=== PATIENT | male | born 1955 | race Caucasian/White ===

== ENCOUNTER 2018-06-21 07:01 | Outpatient (CLI) | payer OTHER, SELFPAY ==
[2018-06-21 08:11] LABS: Cholesterol 206 mg/dL (50-200); Glucose 95 mg/dL (70-100); HDL Cholesterol 63 mg/dL (40-60); LDL CHOLESTEROL 125 mg/dL (<100); Triglyceride 80 mg/dL (30-150)
[2018-06-24 10:14] LABS: Lyme Ab w Rflx to Lyme Confirm Negative
== END 2018-06-21 07:21 ==
LOC: LBN 07:06 → LBO 10:49
PROVIDERS: PCP Family Medicine; Visit Provider Family Medicine
DX: M25.50 Pain in unspecified joint (principal); Z13.220 Encounter for screening for lipoid disorders
CPT/HCPCS: 36415; 80061; 82947; 83721; 86618

== ENCOUNTER 2018-10-14 09:02 | Day surgery (SDC) | payer OTHER, SELFPAY ==
--- NOTE | 2018-10-14 06:53 | W.COLOREPORT ---
Date of service: 10/14/18 Time of Service: 10:52 Colonoscopy Report Date of procedure: 10/14/18 Pre-op diagnosis general: Colon Cancer screening Post-op diagnosis procedure note: same Procedure: Colonoscopy Surgeon: Ijeoma Murray Anesthesia proc note operative: other (General/ ASA 2/ Delores Mclaughlin, MARLO) Estimated blood loss (mL): 0 Pathology: none sent Complications: None Disposition: same day Indications: Mr. Garcia is a pleasant 63 year old male seen in the office for a screening colonoscopy. His last colonoscopy was in 2007 and was normal. He has no family history of colon cancer. Risks, benefits and complications have been reviewed. Complications include but are not limited to bleeding, pain, perforation, missed small lesion/polyp, sore throat, aspiration and adverse reaction to the medications. Questions were entertained and answered to their satisfaction and they wished to proceed. No guarantees were given or implied. Prep: Miralax/Dulcolax Procedure Start Time: 10:52 Procedure End Time: 11:13 Retraction Time: 13 minutes Findings: Normal colon Procedure Description: After informed consent was obtained the patient was taken to the procedure room and placed in a left decubitous position. Monitors were applied and a time out was done. The patients name, date of , procedure, allergies to medications and metal in their body was reviewed. The patient was then sedated. Once sedated and comfortable a rectal exam was done. External exam was normal. Internal exam revealed a normal sphincter tone and no palpable masses. The prostate felt smooth. The scope was then introduced and retro-flexed. No internal hemorrhoids were identified. No rectal polyps or masses were noted. The scope was then advanced to the cecum without difficulty. The TI and appendiceal orifice were identified. The prep was good. The scope was then slowly retracted over 13 minutes back into the rectum. There were no polyps and no diverticula. The scope was removed and the patient was woken up and taken back to Same day surgery in stable condition. The patient tolerated the procedure well and there were no immediate complications. Follow up: The patient should follow up in 10 years unless they develop changes in bowel habits or other new gastrointestinal complaints.
--- NOTE | 2018-10-14 06:55 | W.PM.DSUDISC ---
Discharge Plan Disposition Patient Disposition: HOME Condition: Good Discharge Details Reason For Visit: Colonoscopy Attending Provider: Ijeoma Murray Primary Care Provider: Nancy Ni Home Meds and New Rx's Prescriptions: Continued multivitamin [Daily Vitamin] 1 EACH tablet 1 ea PO DAILY RF: 0 terbinafine HCl 250 mg Tablet 250 mg PO HS RF: 0 Discontinued bisacodyl [Dulcolax (bisacodyl)] 5 mg tablet,delayed release (DR/EC) 5 mg PO ONCE Qty: 4 RF: 0 polyethylene glycol 3350 17 gram/dose powder 238 g PO ONCE Qty: 238 RF: 0 Discharge Instructions Instructions: Colonoscopy (DC) Additional Instructions: Findings: Normal colon Follow up: 10 years unless you develop new symptoms Please call if you develop: fevers >101.5 Nausea or Vomiting Abdominal pain that is not transient DAY SURGERY UNIT POST COLONOSCOPY INSTRUCTIONS 1. Because there will be medication in your system for the next 24 hours, you may feel a little sleepy. Your coordination will be affected. Therefore: a. Do not drive or operate dangerous equipment for 24 hours. b. Do not drink alcohol beverages for 24 hours (not even beer). c. Plan to go home and rest for the day. 2. Generally there are no restrictions on your activity after a day or so has gone by, but you may feel a bit fatigued for a few days. 3 After you arrive home you may have a light meal and return to a normal diet as you can tolerate it without feeling sick to your stomach. 4. After surgery, you may feel pain or discomfort. This should be only transient, but if it persists please contact your doctor. 5. If there are any questions regarding the findings of your procedure, please feel free to contact your doctor. 6. If you are unable to contact your doctor with a problem, contact the hospital at [phone]. 7. Continue all your regular medications unless directed otherwise. I understand the above instructions and have no questions. Signature of Patient or Responsible Adult Escort Date/Time Name of Responsible Adult Escort Signature of Nurse Date/Time Activity:: Activity as Tolerated Diet:: As Tolerated Discharge Orders Discharge Orders: Discharge Order (Routine); Ordered 10/14/18 Ordered By: Ijeoma Murray DS: Diagnosis Discharge Diagnosis (1) S/P colonoscopy: Status: Acute
[2018-10-14 09:11] VITALS: BP 111/72; PULSE 54; RESP 16; TEMP 36.8; O2SAT 100
[2018-10-14] MEDS: Lactated Ringers 1,000 ML 80 ML IV (09:40)
[2018-10-14 11:50] VITALS: BP 113/77; PULSE 64; RESP 16; TEMP 36.2; O2SAT 99
== END 2018-10-14 12:04 | disposition home or self-care (01) ==
LOC: SUR 09:03
PROVIDERS: PCP Family Medicine; Visit Provider Surgery
PROC: 0DJD8ZZ Inspection of Lower Intestinal Tract, Via Natural or Artificial Opening Endoscopic (ICD-10-PCS; CPT 45378; principal; 2018-10-14 10:00)
DX: Z12.11 Encounter for screening for malignant neoplasm of colon (principal)
CPT/HCPCS: 45378

== ENCOUNTER 2019-07-05 01:22 | Outpatient (CLI) | payer OTHER, SELFPAY ==
[2019-07-05 11:19] LABS: Calculated LDL 157 mg/dL; Cholesterol 225 mg/dL (<200); Glucose 93 mg/dL (74-106); HDL Cholesterol 56 mg/dL (40-60); Triglyceride 64 mg/dL (<150)
== END 2019-07-05 01:42 ==
PROVIDERS: PCP Family Medicine; Visit Provider Family Medicine
DX: Z13.220 Encounter for screening for lipoid disorders (principal); Z13.1 Encounter for screening for diabetes mellitus
CPT/HCPCS: 36415; 80061; 82947

== ENCOUNTER 2020-12-24 02:19 | Outpatient (CLI) | payer OTHER, SELFPAY ==
[2020-12-24 09:02] LABS: ALT 36 U/L (16-63); AST 20 U/L (15-37); Albumin 3.7 g/dL (3.4-5.0); Alkaline Phosphatase 64 U/L (46-116); Anion Gap 7.3 mmol/L (3-11); BUN 14 mg/dL (7-18); Bilirubin, Total 0.5 mg/dL (0.2-1.0); CO2 28.7 mmol/L (21.0-32.0); CREATININE 0.9 mg/dL (0.70-1.30); Calcium 9.1 mg/dL (8.5-10.1); Calculated LDL 139 mg/dL (<100); Chloride 108 mmol/L (98-107); Cholesterol 210 mg/dL (<200); Glucose 103 mg/dL (74-106); HDL Cholesterol 58 mg/dL (40-60); Potassium 4.5 mmol/L (3.5-5.1); Sodium 144 mmol/L (136-145); Total Protein 6.7 g/dL (6.4-8.2); Triglyceride 65 mg/dL (<150)
== END 2020-12-24 02:20 | disposition home or self-care (01) ==
LOC: LBO 02:19
PROVIDERS: PCP Family Medicine; Visit Provider Family Medicine
DX: Z13.1 Encounter for screening for diabetes mellitus (principal); Z13.220 Encounter for screening for lipoid disorders
CPT/HCPCS: 36415; 80053; 80061

== ENCOUNTER 2022-10-16 03:57 | Outpatient (CLI) | payer OTHER, SELFPAY ==
[2022-10-16 08:17] LABS: HGB 13.5 g/dL (13.5-17.5); MCH 30.4 pg (27.0-33.0); MCHC 33.8 % (32.0-36.0); MCV 90 fL (80-95); MPV 8.8 fL (8.0-11.0); Platelet Count 340 10^3/uL (130-400); RBC 4.44 10^6/uL (4.36-5.78); RDW 13.5 % (11.8-14.1); RDW-SD 44.8 fL; WBC 4.99 10^3/uL (4.4-10.8)
[2022-10-16 08:59] LABS: ALT 24 U/L (16-63); AST 19 U/L (15-37); Albumin 3.8 g/dL (3.4-5.0); Alkaline Phosphatase 66 U/L (46-116); Anion Gap 4.8 mmol/L (3-11); BUN 16 mg/dL (7-18); Bilirubin, Total 0.7 mg/dL (0.2-1.0); CO2 30.2 mmol/L (21.0-32.0); CREATININE 0.9 mg/dL (0.70-1.30); Calcium 9.2 mg/dL (8.5-10.1); Calculated LDL 118 mg/dL (<100); Chloride 106 mmol/L (98-107); Cholesterol 198 mg/dL (<200); Estimated GFR 94.78 (mL/min/1.73m2); Ferritin 232 ng/mL (26-388); Glucose 98 mg/dL (74-106); HDL Cholesterol 67 mg/dL (40-60); Sodium 141 mmol/L (136-145); Total Protein 7.4 g/dL (6.4-8.2); Triglyceride 68 mg/dL (<150)
[2022-10-16 18:02] LABS: PSA, Screening 1.2 ng/mL (<=4.5)
[2022-10-17 10:08] LABS: HIV-1/2 Ag & Ab Screen Negative (Negative)
[2022-10-17 10:21] LABS: Hepatitis C Ab w Rflx HCV PCR Negative (Negative)
== END 2022-10-16 03:58 | disposition home or self-care (01) ==
LOC: LBO 03:58
PROVIDERS: PCP Nurse Practitioner Family; Visit Provider Nurse Practitioner Family
DX: E78.5 Hyperlipidemia, unspecified (principal); I10 Essential (primary) hypertension; M25.50 Pain in unspecified joint; G25.81 Restless legs syndrome; Z12.5 Encounter for screening for malignant neoplasm of prostate; Z11.4 Encounter for screening for human immunodeficiency virus [HIV]; Z11.59 Encounter for screening for other viral diseases
CPT/HCPCS: 36415; 80053; 80061; 84153; 85027; 86803; 87389; 82728

== ENCOUNTER 2023-01-16 09:48 | Outpatient (CLI) | payer OTHER, SELFPAY ==
--- NOTE | 2023-01-16 09:45 | RT.EKG_ITS ---
APPROVED REPORT Exam: Resting ECG Reason for Exam: dizziness Patient Location: O HR:63 bpm ECG Measurements Heart Rate 63 AXIS VT 164 P 55 QRSd 92 QRS 51 QT 391 T 25 QTc 401 Conclusion Sinus rhythm...normal P axis, V-rate 50- 99 Normal Electrocardiogram
== END 2023-01-16 09:49 | disposition home or self-care (01) ==
LOC: DI.CM 09:49
PROVIDERS: PCP Nurse Practitioner Family; Visit Provider Nurse Practitioner Family
DX: R42 Dizziness and giddiness (principal)
CPT/HCPCS: 93010

== ENCOUNTER 2023-01-16 13:44 | Outpatient (REF) | payer OTHER, SELFPAY ==
[2023-01-16 14:42] LABS: Abs Immature Grans 0.02 10^3/uL (0.0-0.06); Absolute Basophil Count 0.03 10^3/uL (0.0-0.2); Absolute Eosinophil Count 0.16 10^3/uL (0.0-0.7); Absolute Lymphocyte Count 2.07 10^3/uL (1.2-3.4); Absolute Monocyte Count 0.51 10^3/uL (0.1-0.8); Absolute Neutrophil Count 2.59 10^3/uL (1.2-6.7); Basophils % 0.6; HCT 41.1 % (40.0-50.0); Immature Grans % 0.4; Lymphocytes % 38.5; MCH 30.6 pg (27.0-33.0); MCHC 34.1 % (32.0-36.0); MCV 90 fL (80-95); MPV 9.2 fL (8.0-11.0); Monocytes % 9.5; Platelet Count 335 10^3/uL (130-400); RBC 4.58 10^6/uL (4.36-5.78); RDW 13.2 % (11.8-14.1); RDW-SD 43.8 fL; WBC 5.38 10^3/uL (4.4-10.8)
[2023-01-16 21:17] LABS: ALT 27 U/L (16-63); AST 19 U/L (15-37); Albumin 3.9 g/dL (3.4-5.0); Alkaline Phosphatase 68 U/L (46-116); Anion Gap 7.5 mmol/L (3-11); BUN 14 mg/dL (7-18); Bilirubin, Total 0.3 mg/dL (0.2-1.0); CO2 29.5 mmol/L (21.0-32.0); CREATININE 0.8 mg/dL (0.70-1.30); Calcium 9.5 mg/dL (8.5-10.1); Chloride 107 mmol/L (98-107); Estimated GFR 98.21 (mL/min/1.73m2); Glucose 97 mg/dL (74-106); Potassium 4.6 mmol/L (3.5-5.1); Sodium 144 mmol/L (136-145)
== END 2023-01-16 13:45 | disposition home or self-care (01) ==
LOC: LBN 13:44
PROVIDERS: PCP Nurse Practitioner Family; Visit Provider Nurse Practitioner Family
DX: R42 Dizziness and giddiness (principal); R29.818 Other symptoms and signs involving the nervous system
CPT/HCPCS: 80053; 87798; 85025; 86618

== ENCOUNTER 2023-01-24 15:05 | Outpatient (REF) | payer OTHER, SELFPAY ==
[2023-01-26 10:07] LABS: Lyme Ab w Rflx to Lyme Confirm Negative (Negative)
[2023-01-28 17:58] LABS: Anaplasma phagocytophilum Negative (Negative); B. miyamotoi PCR Negative (Negative); Babesia divergens/MO-1 Negative (Negative); Babesia duncani Negative (Negative); Babesia microti Negative (Negative); Ehrlichia chaffeensis Negative (Negative); Ehrlichia ewingii/canis Negative (Negative); Ehrlichia muris eauclairensis Negative (Negative)
== END 2023-01-24 15:06 | disposition home or self-care (01) ==
LOC: LBN 15:05
PROVIDERS: PCP Nurse Practitioner Family; Visit Provider Nurse Practitioner Family
DX: R42 Dizziness and giddiness (principal)
CPT/HCPCS: 87798; 86618

== ENCOUNTER 2024-10-01 08:21 | Outpatient (CLI) | payer MEDICARE, BC, SELFPAY ==
[2024-10-01 12:57] LABS: ALT 23 U/L (16-63); AST 19 U/L (15-37); Alkaline Phosphatase 62 U/L (46-116); Anion Gap 5.2 mmol/L (3-11); BUN 14 mg/dL (7-18); Bilirubin, Total 0.82 mg/dL (0.2-1.0); CO2 30.8 mmol/L (21.0-32.0); Calcium 9.5 mg/dL (8.5-10.1); Calculated LDL 128 mg/dL (<100); Chloride 108 mmol/L (98-107); Cholesterol 214 mg/dL (<200); Estimated GFR 82.49 (mL/min/1.73m2); Glucose 88 mg/dL (74-106); HDL Cholesterol 74 mg/dL (>or=40); Sodium 144 mmol/L (136-145); Total Protein 7.1 g/dL (6.4-8.2); Triglyceride 60 mg/dL (<150)
[2024-10-01 18:29] LABS: PSA, Screening 1.2 ng/mL (<=4.5)
[2024-10-01 19:41] LABS: HBs Antibody, Quant <3.1 mIU/mL (See Note); Hep B Surface Ab Negative (See Note); Hepatitis B Core Antibody Negative (Negative); Hepatitis B Surface Antigen Negative (Negative)
[2024-10-02 11:09] LABS: Lyme Ab w Rflx to Lyme Confirm Negative (Negative)
[2024-10-04 00:23] LABS: Anaplasma phagocytophilum Negative (Negative); B. miyamotoi PCR Negative (Negative); Babesia divergens/MO-1 Negative (Negative); Babesia duncani Negative (Negative); Babesia microti Negative (Negative); Ehrlichia chaffeensis Negative (Negative); Ehrlichia ewingii/canis Negative (Negative); Ehrlichia muris eauclairensis Negative (Negative)
== END 2024-10-01 08:22 | disposition home or self-care (01) ==
PROVIDERS: PCP Nurse Practitioner Family; Referring Provider Nurse Practitioner Family; Visit Provider Nurse Practitioner Family
DX: R42 Dizziness and giddiness (principal); M25.50 Pain in unspecified joint; Z12.5 Encounter for screening for malignant neoplasm of prostate; E78.5 Hyperlipidemia, unspecified
CPT/HCPCS: 36415; 80053; 80061; 84153; 86704; 86706; 87340; 87798; 86618